=== PATIENT | female | born 1955 | race Caucasian/White ===

== ENCOUNTER 2023-06-11 12:40 | Emergency (ER) | payer MEDICARE, BC, SELFPAY ==
[2023-06-11 12:55] VITALS: BP 120/7; PULSE 91; RESP 18; TEMP 36.2; O2SAT 94
--- NOTE | 2023-06-11 16:46 | ED_ITS ---
HPI - Back Pain/Injury General Chief Complaint: Back Injury/Pain Stated Complaint: Lower back pain Time Seen by Provider: 06/11/23 16:32 History of Present Illness HPI Narrative: This 68-year-old female comes in because of back pain that is not controlled and reports that she has constipation. She fell several days ago and had x-ray done elsewhere which showed a compression fracture in her lumbar spine. She received a prescription for Tylenol 3 and has been taking this medicine without much relief. But it has also caused significant constipation. She has use some stool softener medicines without much relief. She does not report any other injury since then. She is otherwise in stable health. Related Data Previous Rx's Medication Instructions Recorded hydrocodone 5 mg-acetaminophen 325 1 tab PO Q4-6H PRN pain #15 tabs 06/11/23 mg tablet ketorolac 10 mg tablet 10 mg PO Q8H 5 days #15 tabs 06/11/23 Allergies Allergy/AdvReac Type Severity Reaction Status Date / Time bupropion [From Wellbutrin] AdvReac Mild Verified 06/11/23 13:01 varenicline [From Chantix] AdvReac Mild Verified 06/11/23 13:01 Review of Systems Status of ROS: Reports: 10 or more systems reviewed and unremarkable except as noted in History and below Narrative: Constitutional: No fevers, no weight gain or loss. Eyes: No discharge. No vision changes. HENT: No congestion, no sore throat, no ear pain. Cardiovascular: No chest pain, no palpitations. Respiratory: No shortness of breath, no wheezes, no cough. Gastrointestinal: No abdominal pain, no vomiting, no diarrhea. She has constipation. Genitourinary: No dysuria, no hematuria. Musculoskeletal: Normal range of motion. Low back pain related to a compression fracture. Skin: No rashes, no pruritis. Neurological: No dizziness, weakness, sensory change, speech change. Endo/Heme/Allergies: No bruising or bleeding. No polydipsia. Pysch: no suicidality, no anxiety, no insomnia. All other systems reviewed and are negative. Exam Narrative: Exam Narrative: Constitutional: Well-developed, well-nourished, no acute distress. HEENT: Normocephalic, atraumatic. Neck: Normal range of motion. Nontender. Supple. Heart: Intact distal pulses. Lungs: No chest discomfort. No wheezes, rhonchi, or rales. Abdomen: Nontender. Back: Diffuse pain in the low back. Pain is not radiating down either leg. Extremities: Normal range of motion. No injury. Skin: Intact. No rash. Warm. No erythema or pallor. Neurologic: No altered sensation. No weakness. Alert and oriented. Psychiatric: No suicidality. No anxiety or depression. No insomnia. Nursing notes and vitals signs are reviewed. Const: Vital Signs, click to edit/add: Vital Signs - 24 hr 06/11/23 12:55 Temperature 97.2 F L Pulse Rate [Pulse Oximeter] 91 Respiratory Rate 18 Blood Pressure [Ri t Upper Arm] 120/7 L Pulse Oximetry 94 Oxygen Delivery Me thod Room Air Course Vital Signs Vital signs: Initial Vital Signs Temperature 97.2 F L 06/11/23 12:55 Temperature Source Temporal Artery Scan 06/11/23 12:55 Pulse Rate 91 06/11/23 12:55 Pulse Rhythm Regular 06/11/23 12:55 Respiratory Rate 18 06/11/23 12:55 Blood Pressure 120/7 L 06/11/23 12:55 Blood Pressure Mean 44 L 06/11/23 12:55 Blood Pressure Position Sitting 06/11/23 12:55 Pulse Oximetry 94 06/11/23 12:55 Oxygen Delivery Method Room Air 06/11/23 12:55 Vital Signs Temperature 97.2 F L 06/11/23 12:55 Pulse Rate 91 06/11/23 12:55 Respiratory Rate 18 06/11/23 12:55 Blood Pressure 120/7 L 06/11/23 12:55 Pulse Oximetry 94 06/11/23 12:55 Oxygen Delivery Method Room Air 06/11/23 12:55 Temperature 97.2 F L 06/11/23 12:55 Pulse Rate 91 06/11/23 12:55 Respiratory Rate 18 06/11/23 12:55 Blood Pressure 120/7 L 06/11/23 12:55 Pulse Oximetry 94 06/11/23 12:55 Oxygen Delivery Method Room Air 06/11/23 12:55 MDM - Back Pain/Injury MDM Narrative Medical decision making narrative: This patient fell several days ago and sustained a compression fracture in her low back. She comes in because of inadequate pain control and a report of constipation. She has not had any injury since this event. It does not seem necessary to repeat x-ray imaging or do CT or MRI imaging. She is not showing any sign of neurologic deficit or progressing symptoms. I did discuss pain medicine options with her and treatment plans for medications to attend to her constipation. The patient did receive a intramuscular injection of Toradol 30 mg. I also prescribed tablets of Toradol and [place]. She understands that [place] will contribute to her constipation. I did describe although [id number] medicines that can be used for constipation and encouraged the patient to be more aggressive with these treatments. Discharge Plan Discharge Clinical Impression: Compression fracture, Constipation Patient Disposition: Home, Self-Care Condition: Unchanged Additional Instructions: Take medications as needed and directed. Use [id number] treatments for constipation also as needed and directed. Follow up with MD or return if worsening. Prescriptions: New hydrocodone-acetaminophen 5-325 mg tablet 1 tab PO Q4-6H PRN (Reason: pain) Qty: 15 0RF ketorolac 10 mg tablet 10 mg PO Q8H 5 Days Qty: 15 0RF Follow Up/Referrals: Lisseth Rodriguez DO [Primary Care Provider] - Stand Alone Forms: [employer] Info Instructions
[2023-06-11] MEDS: KETOROLAC 30 MG/ML inj IM (16:59)
--- NOTE | 2023-06-11 17:12 | ED.NURSE ---
pt in lobby until 1629 due to not having a room available, that is the reason for the delay in charting and treatment
== END 2023-06-11 17:36 | disposition home or self-care (01) ==
LOC: ED 16:57
PROVIDERS: Emergency Provider Emergency Medicine Emergency Medical Services; PCP Family Medicine
DX: K59.00 Constipation, unspecified (principal); M48.56XA Collapsed vertebra, not elsewhere classified, lumbar region, initial encounter for fracture
CPT/HCPCS: 96372; 99283; 99284; J1885

== ENCOUNTER 2023-10-11 10:15 | Outpatient (RCR) | payer MEDICARE, BC, SELFPAY | END 2023-11-15 08:04 | disposition home or self-care (01) | PROVIDERS: PCP Family Medicine; Visit Provider Family Medicine | DX: R29.6 Repeated falls (principal); R26.81 Unsteadiness on feet; M62.81 Muscle weakness (generalized); M54.6 Pain in thoracic spine; Z51.89 Encounter for other specified aftercare | CPT/HCPCS: 97110; 97112; 97140; 97161 ==